=== PATIENT | female | born 1935 | race African-American/Black ===

== ENCOUNTER 2020-01-02 11:33 | Emergency (ER) | payer MEDICARE, OTHER ==
[2020-01-02 13:13] LABS: Bilirubin Negative (Negative); Blood, Urine Negative (Negative); Clarity Clear (Clear); Glucose, Urine (Dipstick) Negative (Negative); Leukocyte Trace (Negative); Nitrite Negative (Negative); Protein, Urine (Dipstick) Trace mg/dL (Neg-Trace); Urobilinogen 0.2 mg/dL (Less than 2)
[2020-01-02 13:30] LABS: #Eosinphils 0.1 thou/uL (0.0-0.7); #Lymphocytes 1.8 thou/uL (1.20-3.40); #Monocytes 0.5 thou/uL (0.11-0.59); #Neutrophils 4.9 thou/uL (1.40-6.50); %Basophils 0.6 % (0.0-1.0); %Eosinophils 1.2 % (0.0-10.0); %Lymphocytes 24.4 % (21.0-51.0); %Monocytes 6.3 % (0.0-10.0); %Neutrophils 67.5 % (42.0-75.0); Mean Corpuscular HGB CONC 31.8 g/dL (32.0-36.0); Mean Corpuscular Hemoglobin 29.1 pg (27.0-31.0); Mean Corpuscular Volume 91.6 fL (78.0-98.0); Mean Platelet Volume 10.1 fL (7.4-10.4); Platelet Count 121 thou/uL (130-400); RBC Distribution Width 11.9 % (11.5-14.5); Red Blood Cell (RBC) Count 4.46 mill/uL (4.20-5.40); White Blood Cell (WBC) Count 7.2 thou/uL (4.8-10.8)
[2020-01-02 13:32] LABS: RBC/HPF None Seen HPF (0-3)
[2020-01-02 13:33] LABS: Bacteria/HPF Rare-Few HPF (None Seen); Yeast-Budding 1+ HPF (None Seen)
[2020-01-02 13:46] LABS: ALT (SGPT) 25 U/L (8-55); AST (SGOT) 24 U/L (5-34); Alkaline Phosphatase 83 U/L (40-110); Anion Gap 17 mmol/L (10-20); BUN (Urea Nitrogen) 18 mg/dL (9.8-20.1); Calc. Creatinine Clearance 0 mL/min (70-130); Calcium 9.2 mg/dL (7.8-10.44); Carbon Dioxide 27 mmol/L (23-31); Chloride 104 mmol/L (98-107); Estimated GFR-MDRD 78; Globulin 3.3 g/dL (2.4-3.5); Glucose 113 mg/dL (83-110); Lipase 16 U/L (8-78); Potassium 4.1 mmol/L (3.5-5.1); Protein, Total 7.3 g/dL (6.0-8.3); Sodium 144 mmol/L (136-145)
--- NOTE | 2020-01-02 13:47 | CT ---
CT ABDOMEN NONCONTRAST CT PELVIS NONCONTRAST: (Urolithiasis protocol) DATE: 01/02/2020 HISTORY: 84-year-old female with low back pain. Rule out abdominal aortic aneurysm. COMPARISON: 08/24/2014 CT of abdomen only (no pelvis) TECHNIQUE: IV injection of iodinated contrast media: None Oral contrast media: None FINDINGS: Other than for urolithiasis, the lack of IV and oral contrast limits the evaluation. There is again demonstration of multilevel high-grade degenerative disc disease with vacuum disc phen omenon, throughout the lumbar spine. There is interval worsening of the S-shaped scoliosis of the thoracolumbar spine. There is heavy atherosclerotic calcification without aneurysm, of the abdominal aorta and all of its branches. Questionable common iliac artery stents. No retroperitoneal lymphadenopathy or hematoma. No ascites or pneumoperitoneum. Lung bases are grossly clear. No renal, ureteral, or bladder calculus. Tiny calcific densities in the kidneys represent calcified atherosclerotic plaque involving branches of bilateral renal arteries, rather than nephrolithiasis. N o hydronephrosis. The previously demonstrated 2.5 cm cyst at the lateral aspect of the right renal midpole parenchyma has increased in size to current dimension of 3 cm. No small bowel dilation. Desce nding and sigmoid colonic diverticulosis without diverticulitis. No small bowel dilation, ascites, or pneumoperitoneum. Within the limitations of a noncontrast scan, no major abnormality identified in volving appendix, pancreas, adrenals, liver, or spleen. IMPRESSION: 1. Scoliosis and high-grade lumbar spondylosis. 2. Atherosclerosis of abdominal aorta and all of its branches, but no aneurysm. 3. No urolithiasis or obstructive uropathy.
== END 2020-01-02 14:20 | disposition home or self-care (01) ==
LOC: MADERS 11:33
DX: M54.5 Low back pain (principal); I10 Essential (primary) hypertension; F17.210 Nicotine dependence, cigarettes, uncomplicated; E11.9 Type 2 diabetes mellitus without complications
CPT/HCPCS: 36415; 74176; 80053; 81003; 81015; 83690; 85025

== ENCOUNTER 2021-03-04 07:44 | Emergency (ER) | payer MEDICARE, MEDICAID | END 2021-03-04 09:00 | disposition home or self-care (01) | LOC: MADERS 07:44 | DX: S51.011A Laceration without foreign body of right elbow, initial encounter (principal); R26.9 Unspecified abnormalities of gait and mobility; M25.511 Pain in right shoulder; E78.5 Hyperlipidemia, unspecified; E11.9 Type 2 diabetes mellitus without complications; I10 Essential (primary) hypertension; F17.210 Nicotine dependence, cigarettes, uncomplicated; Z79.899 Other long term (current) drug therapy; W18.09XA Striking against other object with subsequent fall, initial encounter ==